=== PATIENT | male | born 1965 | race Caucasian/White ===

== ENCOUNTER 2021-04-14 01:12 | Day surgery (SDC) | payer OTHER, SELFPAY ==
[2021-03-20 10:04] VITALS: BMI 23.1
[2021-04-14 07:40] VITALS: BP 148/90; PULSE 72; RESP 16; TEMP 36.5; O2SAT 100
[2021-04-14] MEDS: LACTATED RINGERS 1,000 ML 150 ML IV CONT (07:48)
--- NOTE | 2021-04-14 07:49 | P.PNAN_ITS ---
Anes - Initial Pre Proc Eval Procedure: Operation Date: 04/14/21 08:30 Proposed Procedures p Esophagogastroduodenoscopy - Cavlin Ambriz MD Date/Time: 04/14/21 07:49 Surgeon: Calvin Ambriz MD Pre Op Diagnosis: GERD Patient Data Age: 55 Gender: M Height: 1.75 m Weight: 70.5 kg Last Vital Signs Temp 36.5 C 04/14/21 07:40 Pulse 72 04/14/21 07:40 Resp 16 04/14/21 07:40 BP 148/90 H 04/14/21 07:40 Pulse Ox 100 04/14/21 07:40 Allergies Allergy/AdvReac Type Severity Reaction Status Date / Time Penicillins Allergy Unknown Rash Verified 04/14/21 07:38 Home Medications Medication Instructions Recorded Confirmed Type allopurinol 300 mg tablet 300 mg PO DAILY 01/26/21 04/14/21 History famotidine 20 mg tablet 20 mg PO DAILY 01/26/21 04/14/21 History fluticasone propionate 50 2 spray INTRANASAL DAILY 01/26/21 04/14/21 History mcg/actuation nasal spray,suspension pseudoephedrine HCl 60 mg tablet 60 mg PO Q4-6H PRN 01/26/21 04/14/21 History vit C,E,zinc,copper-zhvlu0r 250 1 cap PO DAILY 01/26/21 04/14/21 History mg-lutein 5 mg-zeaxanthin 1 mg capsule irbesartan 150 mg PO DAILY 03/20/21 04/14/21 History Patient hx anesthesia problems: none Family hx anesthesia problems: none Results Review: All pre-operative results and documents have been reviewed as part of the pre-operative evaluation. [facility] Past Medical History Medical History Colon cancer screening Elevated uric acid in blood GERD (gastroesophageal reflux disease) Hyperlipidemia Normal colonoscopy Family History Family History Other Hypertension Social History Social History Smoking status: Never smoker Alcohol intake: current Alcohol use details: occasional use, less than weekly Substance use: never Substance use type: does not use Living arrangements: with family Spiritual care concerns: No Anes - Eval Final PreProcedure Day of Procedure 04/14/21 07:49 Patient weight: normal Heart: regular rate and rhythm Lungs: clear to auscultation Airway: Mallampati scale class 1 Neurological: alert and oriented Last oral intake: >/= 8 hours ASA classification: II Emergent: no Anesthetic plan: proceed Anesthesia type and monitoring: general GIVS and standard monitoring Results Review: All pre-operative results and documents have been reviewed as part of the pre-operative evaluation. Informed Consent: The patient's anesthetic plan and its attendant risks and benefits were discussed with the patient/family/POA. Questions were solicited and answers provided to the satisfaction of the patient/family/POA.
--- NOTE | 2021-04-14 08:24 | PM.HPGS ---
History of Present Illness History of Present Illness Consent: Risks, benefits, and alternatives have been discussed and questions answered. Patient agrees to proceed with procedure. Chief complaint: GERD Narrative: Gurwinder Gutierrez is a 55 year old male with gerd on pepcid, never had egd Review of Systems Constitutional: Constitutional: Denies headache(s) and Denies weakness Eyes: Eyes: Denies blurry vision ENT: Reports Normal hearing present, Denies headache(s) and Denies neck pain Cardiovascular: Cardiovascular: Denies chest pain and Denies dyspnea Respiratory: Respiratory: Denies dyspnea Gastrointestinal: Gastrointestinal: Reports no additional gastrointestinal complaints Genitourinary: Genitourinary: Denies dysuria Musculoskeletal: Musculoskeletal: Denies neck pain Integumentary/Breasts: Skin/Breast: Denies dry skin Neurologic: Reports Normal hearing present, Denies headache(s) and Denies weakness Psychiatric: Psychiatric: Denies anxiety Endocrine: Endocrine: Denies change in body appearance Hematologic/Lymphatic: Hematologic/Lymphatic: Denies easy bleeding Allergic/Immunologic: Allergic/Immunologic: Denies urticaria PMFSH Past Medical History Medical History (Updated 04/14/21 @ 08:24 by Calvin Ambriz MD) Colon cancer screening Elevated uric acid in blood GERD (gastroesophageal reflux disease) Hyperlipidemia Normal colonoscopy Family History Family History Other Hypertension Social History Social History Smoking status: Never smoker Alcohol intake: current Alcohol use details: occasional use, less than weekly Substance use: never Substance use type: does not use Living arrangements: with family Spiritual care concerns: No Meds Home Medications and Allergies Home Medications Medication Instructions Recorded Confirmed Type allopurinol 300 mg tablet 300 mg PO DAILY 01/26/21 04/14/21 History famotidine 20 mg tablet 20 mg PO DAILY 01/26/21 04/14/21 History fluticasone propionate 50 2 spray INTRANASAL DAILY 01/26/21 04/14/21 History mcg/actuation nasal spray,suspension pseudoephedrine HCl 60 mg tablet 60 mg PO Q4-6H PRN 01/26/21 04/14/21 History vit C,E,zinc,copper-hvxlg8f 250 1 cap PO DAILY 01/26/21 04/14/21 History mg-lutein 5 mg-zeaxanthin 1 mg capsule irbesartan 150 mg PO DAILY 03/20/21 04/14/21 History Allergies Allergy/AdvReac Type Severity Reaction Status Date / Time Penicillins Allergy Unknown Rash Verified 04/14/21 07:38 Vital Signs Vital Signs - 24 hr 04/14/21 07:40 Temperature 97.7 F Pulse Rate 72 Respiratory Rate 16 Blood Pressure 148/90 H Pulse Oximetry 100 Exam Const: General: comfortable and no acute distress HENMT: General nose exam: Normal nares present Eyes: General: appearance normal, both eyes and all related structures Neck: Neck: no JVD Resp: Auscultation: clear to auscultation bilaterally Cardio: Rate: regular rate Rhythm: regular rhythm GI: Inspection: non-distended GI Palp: Yes Soft to palpation Skin: General skin exam: normal color Neuro: General: gait normal Speech: normal speech Extrem: General: normal to inspection Psych: Mental Status: mental status grossly normal Assessment and Plan Assessment and plan (1) GERD (gastroesophageal reflux disease): Code(s): K21.9 - Gastro-esophageal reflux disease without esophagitis Status: Inactive Assessment and Plan: egd with bx, doing well with pepcid
[2021-04-14 08:38] VITALS: BP 119/80; PULSE 67; RESP 16; O2SAT 98
[2021-04-14 08:48] VITALS: BP 119/81; PULSE 63; RESP 16; O2SAT 100
[2021-04-14 08:57] VITALS: BP 126/91; PULSE 63; RESP 16; O2SAT 100
== END 2021-04-14 09:06 | disposition home or self-care (01) ==
PROVIDERS: Visit Provider Internal Medicine Gastroenterology
PROC: 0DJ08ZZ Inspection of Upper Intestinal Tract, Via Natural or Artificial Opening Endoscopic (ICD-10-PCS; CPT 43235; principal; 2021-04-14 08:30)
DX: K21.9 Gastro-esophageal reflux disease without esophagitis (principal); E78.5 Hyperlipidemia, unspecified
CPT/HCPCS: 43239; 88305; J2001; J2704; J7120

== ENCOUNTER 2025-02-01 00:58 | Day surgery (SDC) | payer OTHER, SELFPAY ==
[2025-01-11 14:15] VITALS: BMI 22.8
--- OUTSIDE RECORDS SUMMARY | 2025-02-01 01:01 | XMS_ITS | Clinical Summary ---
Author Organization [facility] Address [facility] [place] [address] Care Team Providers Care Wood Crafter Name Role Phone Con Mckeon MD Primary Care Provider [phone] Allergies Active Allergy Reactions Criticality Noted Date Comments Penicillins Rash Low 08/10/2020 Medications allopurinol 300 MG tablet Take 300 mg by mouth daily. 04/15/2020 Active famotidine 20 MG tablet Take 20 mg by mouth daily. Active multiple vitamins-minera ls (OCUVITE ADULT 50+) Cap Take 1 capsule by mouth daily. Active pseudoephedrine 60 MG tablet Take 60 mg by mouth every 6 (six) hours as needed for Congestion. 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 08/10/2020 Gastroesophageal reflux dise ase with esophagitis without hemorrhage 08/10/2020 Nonallergic rhinitis 08/10/2020 H/O basal cell carcinoma excision 08/10/2020 BMI 22.0-22.9, adult 08/10/2020 Medication management 08/10/2020 Skin lesion of right upper extremity 08/10/2020 Immunizations Immunization Administration Dates Next Due MODERNA COVID-19 (12+) MRNA, LNP-S, PF, 100 MCG/ 0.5 ML DOSE 04/05/2020,03/08/2020 Family History Medical History Relation Comments No Known Problems Brother 1 Arthritis Father Hypertension Father Gout Mother Hypertension Mother Macular Degeneration Mother Ulcerative Colitis Mother Relation Status Comments Brother 1 Alive Brother 2 Alive Father Alive Mother Alive Sister Alive Social History Tobacco Use Types Packs/Day Years Used Date Smoking Tobacco: Never Smokeless Tobacco: Never Alcohol Use Standard Drinks/Week Comments Yes 0 (1 standard drink = 0.6 oz pur e alcohol) social PHQ-2 Answer Date Recorded PHQ-2 Score - If the patient scores above 3, please move on to questions 3-9 0 08/10/2020 Sex and Gender Information Value Date Recorded Sex Assigned at Not on file 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 Gender Identity Not on file Sexual Orientation Not on file Last Filed Vital Signs Vital Sign Reading Time Taken Comments Blood Pressure 136/96 08/10/2020 2:32 PM CDT Pulse 73 08/10/2020 2:32 PM CDT Temperature 36.8 C (98.3 F) 08/10/2020 2:32 PM CDT Respiratory Rate 16 08/10/2020 2:32 PM CDT Oxygen Saturation 98% 08/10/2020 2:32 PM CDT Inhaled Oxygen Concentration - - Weight 69.9 kg (154 lb) 08/10/2020 2:32 PM CDT Height 177.8 cm (5' 10) 08/10/2020 2:32 PM CDT Body Mass Index 22.1 08/10/2020 2:32 PM CDT Plan of Treatment Health Maintenance Due Date Last Done Comments Colorectal Cancer Screening Colonoscopy (10 Years) 1967 Annual Physical 07/08/1970 Hepatitis C 07/08/1985 DTaP, Tdap and Td Vaccines ( 1 - Tdap) 07/08/1986 Hepatitis B Vaccines (1 of 3 - 19+ 3-dose series) 07/08/1986 Pneumococcal Vaccine: 50+ Years (1 of 1 - PCV) 07/08/2017 Zoster Vaccines (1 of 2) 07/08/2017 COVID-19 Vaccine (3 - 2024-2 6 season) 2024 04/05/2020, 03/08/2020 Influenza Adult (#1) 2024 01/22/2017, 01/18/2017 Hepatitis A Vaccines Aged Out No long er eligible based on patient's age to complete this topic Meningococcal B Vaccine Aged Out No l onger eligible based on patient's age to complete this topic Meningococcal Vaccine Aged Out No kennedy mathew eligible based on patient's age to complete this topic RSV Immunizations Under 20 Months Aged Out No longer eligible b ased on patient's age to complete this topic Insurance Sxbbm OPEN ACCESS [facility] Care Teams Wood Crafter Relationship Specialty Start Date End Date Con Mckeon MD PCP - General INTERNAL MEDICINE 08/10/20
--- OUTSIDE RECORDS SUMMARY | 2025-02-01 01:01 | XMS_ITS | Clinical Summary ---
Author Organization [address] Address [facility] [place] [address] Care Team Providers Care Marketing Sales Supervisor Name Role Phone Fabrizio Easley MD Primary Care Provider [phone] Allergies Active Allergy Reactions Criticality Noted Date Comments Penicillins Medications naproxen (ANAPROX) 275 mg tablet Active vit C,P-Dw-ubonz-lut ein-zeaxan (Ocuvite Lutein and Zeaxanthin) 60 mg-13.5 mg- 15 mg-2 mg-6 mg capsule Take 1 capsule by mouth daily Active pseudoephedrine (SUDAFED) 60 mg tablet Take 1 tablet (60 mg total) by mouth every 6 (six) hours as needed Active omeprazole 20 mg tablet,disintegr at, delay rel Take 20 mg by mouth daily 4 Active allopurinoL (ZYLOPRIM) 300 mg tabletIndication s:Idiopathic gout, unspecified chronicity, unspecified site Take 1 tablet (300 mg total) by mouth daily 90 tablet 3 5 Active irbesartan (AVAPRO) 300 mg tabletIndication s:Hypertension, essential Take 1 tablet by mouth daily 90 tablet 3 5 Active amLODIPine (NORVASC) 5 mg tabletIndication s:hypertension Take 1 tablet (5 mg total) by mouth daily 90 tablet 3 5 03/14/19 26 Active tadalafiL (CIALIS) 20 mg tabletIndication s:Erectile dysfunction due to diseases classified elsewhere Take 1 tablet (20 mg total) by mouth daily as needed for erectile dysfunction 12 tablet 3 5 Active Active Problems Problem Noted Date Diagnosed Date Palpitations 01/27/2024 Assessment & Plan (01/27/2024 4:54 PM EXTENSION SERVICE ADVISOR): EKG: sinus arrhythmia Labs, ECHO and Event monitor ordered for further evaluation Hypertension, essential 03/12/2023 Assessment & Plan (01/27/2024 2:03 PM EXTENSION SERVICE ADVISOR): Hypertension is worsening Continue current treatment regimen. Dietary sodium restriction. Regular aerobic exercise. Continue current medications. Ambulatory blood pressure monitoring. Blood pressure will be reassessed in 2 weeks. Special screening for malignant neoplasms, colon 07/28/2019 Overview (07/28/2019): Added automatically from request for surgery [id number] Hay fever 12/28/2015 Gout, unspecified 12/28/2015 Hyperlipidemia 12/28/2015 Low testosterone 12/28/2015 Knee pain 10/02/2010 Immunizations Immunization Administration Dates Next Due Influenza, Quadrivalent, Katelin l Culture-based MDCK, Preservative Free, Antibiotic Free, Intramuscular 01/22/2017 Influenza, Unspecified 12/01/2021 Pfizer Sars-Cov-2 Bivalent Vaccination (12+ YRS) 12/01/2021 ZOSTER Recombinant 11/26/2022 Medical History Medical History Date Comments Gout Family History Medical History Relation Name Comments Gout Brother Family history of gout - (Added by TW Conv) Rheum arthritis Father Family histo ry of rheumatoid arthritis - (Added by TW Conv) Ulcerative colitis Mother Family hi story of ulcerative colitis - (Added by TW Conv) Relation Name Status Comments Brother Father Mother Social History Tobacco Use Types Packs/Day Years Used Date Smoking Tobacco: Never Smokeless Tobacco: Never Tobacco Cessation:Counseling Given: No Sex and Gender Information Value Date Recorded Sex Assigned at Not on file Legal Sex Male 2:59 AM EXTENSION SERVICE ADVISOR Gender Identity Not on file Sexual Orientation Not on file Last Filed Vital Signs Vital Sign Reading Time Taken Comments Blood Pressure 146/73 05/04/2024 8:00 AM CDT Pulse 79 05/04/2024 8:00 AM CDT Temperature 36.6 C (97.8 F) 03/19/2024 9:45 AM EXTENSION SERVICE ADVISOR Respiratory Rate 20 03/12/2023 8:42 AM EXTENSION SERVICE ADVISOR Oxygen Saturation 97% 05/04/2024 8:00 AM CDT Inhaled Oxygen Concentration - - Weight 72.3 kg (159 lb 4.8 oz) 03/19/2024 9:45 A M EXTENSION SERVICE ADVISOR Height 177.8 cm (5' 10) 03/19/2024 9:45 AM EXTENSION SERVICE ADVISOR Body Mass Index 22.86 03/19/2024 9:45 AM EXTENSION SERVICE ADVISOR Plan of Treatment Health Maintenance Due Date Last Done Comments Depression Screening 1965 Hepatitis C Screening 1965 DTaP/Tdap/Td Vaccine (1 - Tdap) 07/08/1978 Hepatitis B Screening 07/08/1985 Zoster Vaccine (2 of 2) 01/21/2023 11/26/2022 Covid-19 Vaccine ( - season) 2024 12/01/2021, 04/05/2020, 03/08/2020 Influenza Vaccine (#1) 2024 12/01/2021, 2016 Regular Well Visit/Exam 18-64 03/19/2025 03/19/2024, 03/12/2023, 03/08/2022, Additional history exists Prostate Cancer Screening-PSA 04/08/2026 04/08/2024, 04/25/2023, 06/14/2022, Additional history exists Colon Cancer Screening-Colonoscopy 08/06/2029 08/07/2019 Colon Cancer Screening-CT Colonography Discontinued 08/07/2019 Colon Cancer Screening-DNA Stool Discontinued 08/07/2019 Colon Cancer Screening-FIT Discontinued 08/07/2019 Colon Cancer Screening-Sigmoidoscopy Discontinued 08/07/2019 Pneumococcal vaccine <65 Aged Out No longer eligible based on patient's age to complete this topic Procedures Procedure Name Priority Date/Time Associated Diagnosis Comments PSA SCREEN Routine 04/08/2024 6:44 AM EXTENSION SERVICE ADVISOR Prostate cancer screening COLONOSCOPY 08/07/2019 8:48 AM CDT from Last 3 Months or Most Recently Relevant to Health Maintenance Results * PSA screen (04/08/2024 6:44 AM EXTENSION SERVICE ADVISOR) PSA 1.08 < OR = 4.00 ng/mL [facility] Comment: The total PSA value from this assay system is standardized against the WHO standard. The test result will be approximately 20% lower when compared to the equimolar-standardized total PSA (Suni Bison). Comparison of serial PSA results should be interpreted with this fact in mind. This test was performed using the Siemens chemiluminescent method. Values obtained from different assay methods cannot be used interchangeably. PSA levels, regardless of value, should not be interpreted as absolute evidence of the presence or absence of disease. Blood 04/08/2024 6:44 AM EXTENSION SERVICE ADVISOR 04/08/2024 6:45 AM EXTENSION SERVICE ADVISOR us Fabrizio Easley MD LAB BLOOD ORDERABLES Final R esult [facility] [id number] [place] [id number] * COLONOSCOPY (08/07/2019 8:48 AM CDT) Anatomical Region Laterality Modality Other Narrative Procedure Note Aquiles Ace MD - 08/07/2019 8:48 AM CDT ENDOSCOPY LAB Patient Name: Gurwinder Gutierrez Procedure Date: 08/07/2019 8:48 AM Admit Type: Outpatient Room: [facility] 2 Date of : 1965 Instrument Name: [id number] Gender: Male Note Status: Finalized Procedure: Colonoscopy Indications: Screening for colorectal malignant neoplasm Comorbidities No comorbidities Providers: Aquiles Ace M.D. Referring MD: Fabrizio Easley M.D. Medicines: See the Anesthesia note for documentation of the administered medications Complications: No immediate complications. Estimated blood loss:None. Estimated Blood Loss: Estimated blood loss: none. Procedure: Pre-Anesthesia Assessment: - Prior to the procedure, a History and Physical was performed, and patient medications, allergies and sensitivities were reviewed. The patient's tolerance of previous anesthesia was reviewed. - The risks and benefits of the procedure and thesedation options and risks were discussed with the patient. All questions were answered and informed consent wasobtained. The benefits, risks and alternatives of the procedureand sedation were discussed and informed consent wasobtained. All questions were answered. Please refer to the signed informed consent document in the medical record. Thescope was passed under direct vision. The Colonoscope was introduced through the anus and advanced to the thececum, identified by appendiceal orifice and ileocecal valve.The quality of the bowel preparation was evaluated usingthe BBPS ([place] Bowel Preparation Scale) with scores of: Right Colon = 2 (minor amount of residual staining,small fragments of stool and/or opaque liquid, but mucosaseen well), Transverse Colon = 2 (minor amount of residual staining, small fragments of stool and/or opaqueliquid, but mucosa seen well) and Left Colon = 3 (entire mucosa seen well with no residual staining, small fragments of stool or opaque liquid). The total BBPS score equals 7. The quality of the bowel preparation was good. Thebowel preparation used was SUPREP. Bowel prep wasadministered using a split dose. Findings: The digital rectal exam was normal. Pertinent negatives include no palpable rectal lesions. Anal papilla(e) were hypertrophied. The colon (entire examined portion) was moderately redundant. The exam was otherwise without abnormality on direct and retroflexion views. Impression: - Anal papilla(e) were hypertrophied. - Redundant colon. - The examination was otherwise normal on direct and retroflexion views. - No specimens collected. Recommendation: - Repeat colonoscopy in 5-10 years for screeningpurposes. Electronically signed by Aquiles Ace M.D. Aquiles Ace M.D. 08/07/2019 9:30:34 AM Number of Addenda: 0 Note Initiated On: 08/07/2019 8:48 AM Aquiles Ace MD ENDOSCOPY PROCEDURES Fin al Result from Last 3 Months or Most Recently Relevant to Health Maintenance Insurance [facility] [id number] [employer] [facility] [id number] [facility] [id number] [place] [address] Care Teams Marketing Sales Supervisor Relationship Specialty Start Date End Date Fabrizio Easley MD [facility] [facility] [address] Karina BAKER [address] [place] [id number] PCP - General Cardiovascular Disease 02/09/21
[2025-02-01 11:14] VITALS: BP 143/90; PULSE 76; RESP 18; TEMP 36.9; O2SAT 100
[2025-02-01] MEDS: LACTATED RINGERS 1,000 ML 150 ML IV CONT (11:30)
--- NOTE | 2025-02-01 12:11 | PM.HPGS ---
History of Present Illness History of Present Illness Consent: Risks, benefits, and alternatives have been discussed and questions answered. Patient agrees to proceed with procedure. Chief complaint: Unspecified abdominal pain Narrative: Gurwinder Gutierrez is a 59 year old male with last colonoscopy 2019, had change bowel habits. Serology for celiac negative. Review of Systems Review of Systems: All systems reviewed & are unremarkable except as noted in HPI and below PMFSH Past Medical History Medical History GERD (gastroesophageal reflux disease) Hyperlipidemia Colon cancer screening Normal colonoscopy Elevated uric acid in blood Family History Family History Other Hypertension Social History Social History Smoking status: Never smoker Alcohol intake: current Alcohol use details: 1 in 3 months Substance use: never Substance use type: does not use Living arrangements: with family Spiritual care concerns: No Meds Home Medications and Allergies Home Medications ?Medication ?Instructions ?Recorded ?Confirmed ?Type allopurinol 300 mg tablet 300 mg PO DAILY 01/26/21 02/01/25 History famotidine 20 mg tablet 20 mg PO DAILY 01/26/21 01/11/25 History fluticasone propionate 50 2 spray intranasal DAILY 01/26/21 02/01/25 History mcg/actuation nasal spray,suspension (Allergy Relief (fluticasone)) pseudoephedrine HCl 60 mg tablet 60 mg PO Q4-6H PRN Runny Nose 01/26/21 01/11/25 History vit C,E,copper,zinc-ccqyd5r 250 1 cap PO DAILY 01/26/21 02/01/25 History mg-lutein 5 mg-zeaxanthin 1 mg capsule (Ocuvite Adult 50 Plus) cholecalciferol (vitamin D3) 125 125 mcg PO DAILY 12/02/24 02/01/25 History mcg (5,000 unit) disintegrating tablet esomeprazole magnesium 20 mg 20 mg PO DAILY 12/02/24 02/01/25 History capsule,delayed release ibuprofen 200 mg capsule 200 mg PO Q6H PRN pain 12/02/24 02/01/25 History irbesartan 150 mg tablet 300 mg PO DAILY 12/02/24 02/01/25 History loperamide 2 mg capsule (Imodium 2 mg PO Q6H PRN loose stool 12/02/24 01/11/25 History A-D) oxymetazoline 0.025 % nasal spray 1 spray intranasal HS 12/02/24 02/01/25 History psyllium husk 3.4 gram oral powder 3.4 g PO TID 12/02/24 01/11/25 History packet (Metamucil Fiber (aspartame)) tadalafil 20 mg tablet (Cialis) 20 mg PO DAILY PRN sexual activity 12/02/24 01/11/25 History amlodipine 5 mg tablet 5 mg PO DAILY 01/11/25 02/01/25 History Allergies Allergy/AdvReac Type Severity Reaction Status Date / Time Penicillins Allergy Unknown Rash Verified 01/11/25 14:07 Vital Signs Vital Signs - 24 hr 02/01/25 11:14 Temperature 98.5 F Pulse Rate 76 Respiratory Rate 18 Blood Pressure 143/90 H Pulse Oximetry 100 Exam Const: General: comfortable and no acute distress HENMT: Face/Nose/Sinus: Normal nares present Eyes: General: appearance normal, both eyes and all related structures Neck: Neck: no JVD Resp: Auscultation: clear to auscultation bilaterally Cardio: Rate: regular rate Rhythm: regular rhythm GI: Inspection: non-distended GI Palp: Yes Soft to palpation Skin: General skin exam: normal color Extrem: General: normal to inspection Psych: Mental Status: mental status grossly normal Assessment and Plan Assessment and plan (1) Altered bowel habits: Code(s): R19.4 - Change in bowel habit Status: Acute Assessment and Plan: colonoscopy with random bx
[2025-02-01 12:31] VITALS: BP 113/75; PULSE 69; RESP 15; O2SAT 98
--- NOTE | 2025-02-01 12:31 | S_PTH ---
PATIENT: Gurwinder Gutierrez LOC: [facility]#:[id number] AGE/SX: 59/M ROOM: RE02/01/[address]: Calvin Ambriz MD : 1965 BED: DIS: 02/01/2025 SPEC #: [id number] RECD: 02/01/25 13:11 STATUS: ANDREINA SANDRA #: [id number] NOLAN: 02/01/25 12:[address]: Calvin Ambriz DEPT: [facility] Surgical RECD BY: Mee Gold Tissues: A - Colon Biopsy B - Colon Polypectomy Procedures: Hematoxylin and Eosin Stain Gross and Microscopic Level 4
--- NOTE | 2025-02-01 12:38 | WPDANESEPPF ---
Anes - Initial Pre Proc Eval Procedure: Operation Date: 02/01/25 12:30 Proposed Procedures p Diagnostic Colonoscopy - Calvin Ambriz MD Date/Time: 02/01/25 12:38 Surgeon: Calvin Ambriz MD Pre Op Diagnosis: Unspecified abdominal pain Patient Data Age: 59 Gender: M Height: 1.75 m Weight: 68.1 kg Last Vital Signs Temp 36.9 C 02/01/25 11:14 Pulse 69 02/01/25 12:31 Resp 15 02/01/25 12:31 BP 113/75 02/01/25 12:31 Pulse Ox 98 02/01/25 12:31 O2 Del Method Room Air 02/01/25 12:31 Allergies Allergy/AdvReac Type Severity Reaction Status Date / Time Penicillins Allergy Unknown Rash Verified 01/11/25 14:07 Home Medications ?Medication ?Instructions ?Recorded ?Confirmed ?Type allopurinol 300 mg tablet 300 mg PO DAILY 01/26/21 02/01/25 History famotidine 20 mg tablet 20 mg PO DAILY 01/26/21 01/11/25 History fluticasone propionate 50 2 spray intranasal DAILY 01/26/21 02/01/25 History mcg/actuation nasal spray,suspension (Allergy Relief (fluticasone)) pseudoephedrine HCl 60 mg tablet 60 mg PO Q4-6H PRN Runny Nose 01/26/21 01/11/25 History vit C,E,copper,zinc-[id number] 250 1 cap PO DAILY 01/26/21 02/01/25 History mg-lutein 5 mg-zeaxanthin 1 mg capsule (Ocuvite Adult 50 Plus) cholecalciferol (vitamin D3) 125 125 mcg PO DAILY 12/02/24 02/01/25 History mcg (5,000 unit) disintegrating tablet esomeprazole magnesium 20 mg 20 mg PO DAILY 12/02/24 02/01/25 History capsule,delayed release ibuprofen 200 mg capsule 200 mg PO Q6H PRN pain 12/02/24 02/01/25 History irbesartan 150 mg tablet 300 mg PO DAILY 12/02/24 02/01/25 History loperamide 2 mg capsule (Imodium 2 mg PO Q6H PRN loose stool 12/02/24 01/11/25 History A-D) oxymetazoline 0.025 % nasal spray 1 spray intranasal HS 12/02/24 02/01/25 History psyllium husk 3.4 gram oral powder 3.4 g PO TID 12/02/24 01/11/25 History packet (Metamucil Fiber (aspartame)) tadalafil 20 mg tablet (Cialis) 20 mg PO DAILY PRN sexual activity 12/02/24 01/11/25 History amlodipine 5 mg tablet 5 mg PO DAILY 01/11/25 02/01/25 History Patient hx anesthesia problems: none Family hx anesthesia problems: none Results Review: All pre-operative results and documents have been reviewed as part of the pre-operative evaluation. [facility] Past Medical History Medical History GERD (gastroesophageal reflux disease) Hyperlipidemia Colon cancer screening Normal colonoscopy Elevated uric acid in blood Family History Family History Other Hypertension Social History Social History Smoking status: Never smoker Alcohol intake: current Alcohol use details: 1 in 3 months Substance use: never Substance use type: does not use Living arrangements: with family Spiritual care concerns: No Anes - Eval Final PreProcedure Day of Procedure 02/01/25 12:38 Patient weight: normal Heart: regular rate and rhythm Lungs: clear to auscultation and normal air movement Airway: Mallampati scale class II Neurological: alert and oriented Last oral intake: >/= 8 hours ASA classification: II Emergent: no Anesthetic plan: proceed Anesthesia type and monitoring: general GIVS and standard monitoring Results Review: All pre-operative results and documents have been reviewed as part of the pre-operative evaluation. Informed Consent: The patient's anesthetic plan and its attendant risks and benefits were discussed with the patient/family/POA. Questions were solicited and answers provided to the satisfaction of the patient/family/POA.
[2025-02-01 12:41] VITALS: BP 119/75; PULSE 69; RESP 18; O2SAT 100
[2025-02-01 12:51] VITALS: BP 142/87; PULSE 72; RESP 18; O2SAT 100
== END 2025-02-01 13:04 | disposition home or self-care (01) ==
PROVIDERS: Referring Provider Nurse Practitioner; Visit Provider Internal Medicine Gastroenterology
PROC: 0DJD8ZZ Inspection of Lower Intestinal Tract, Via Natural or Artificial Opening Endoscopic (ICD-10-PCS; CPT 45378; principal; 2025-02-01 12:30)
DX: R19.4 Change in bowel habit (principal); K57.30 Diverticulosis of large intestine without perforation or abscess without bleeding; K63.5 Polyp of colon; K64.8 Other hemorrhoids
CPT/HCPCS: 45380; 45385; 88305; J2704; J7120